=== PATIENT | female | born 1990 | race Two or more races ===

== ENCOUNTER 2020-10-09 10:48 | Inpatient (IN) | payer OTHER ==
[~2020-10-09] VITALS: Ht 160 cm; Wt 81.8 kg
[2020-10-09] MEDS ORDERED: OXYTOCIN 30U/ 0.9% NaCL 500ML 500 ML IV ONE (12:30)
[2020-10-09] MEDS ORDERED: TERBUTALINE 1 MG/ML, 1ML SQ PRN (12:30)
[2020-10-09] MEDS ORDERED: OXYTOCIN 30U/ 0.9% NaCL 500ML 500 ML IV PRN (12:30)
[2020-10-09] MEDS ORDERED: FENTANYL PF 100 MCG/2ML IV PRN (12:30)
[2020-10-09] MEDS ORDERED: TERBUTALINE 1 MG/ML, 1ML IVPush PRN (12:30)
[2020-10-09] MEDS ORDERED: FENTANYL PF 100 MCG/2ML IVPush PRN (12:30)
[2020-10-09] MEDS ORDERED: ONDANSETRON 2MG/ML, 2ML IVPush PRN (12:30)
[2020-10-09] MEDS ORDERED: CALCIUM CARBONATE 500 MG TAB.CHEW PO PRN (12:30)
[2020-10-09] MEDS ORDERED: D5%-LACTATED RINGERS 1,000 ML IV SCH (12:30)
[2020-10-09] MEDS ORDERED: NEWBORN KIT ONE (12:53)
[2020-10-09] MEDS: LACTATED RINGERS 1,000 ML IV SCH ×2 (12:57→19:00)
[2020-10-09 13:05] LABS: BASOPHILS % (AUTO) 0 % (0-1); EOSINOPHILS % (AUTO) 0 % (1-7); LYMPHOCYTES % (AUTO) 12 % (22-44); MEAN CORPUSCULAR HEMOGLOBIN 28.4 pg (27.0-34.8); MEAN CORPUSCULAR HGB CONC 33.5 g/dL (32.4-35.8); MEAN PLATELET VOLUME 9.6 fL (7.4-10.4); MONOCYTES % (AUTO) 6 % (2-9); NEUTROPHILS % (AUTO) 81 % (42-75); PLATELET COUNT 154 x10^3/uL (130-400); RED BLOOD COUNT 4.71 x10^6/uL (3.82-5.3); RED CELL DISTRIBUTION WIDTH 17.2 % (9.6-15.2)
[2020-10-09 13:07] LABS: MD NO
[2020-10-09] MEDS ORDERED: ACETAMINOPHEN 500 MG TABLET ONE (19:12)
[2020-10-09] MEDS ORDERED: LIDOCAINE 1%, 20ML ONE (19:12)
[2020-10-09] MEDS: AMPICILLIN 2 GM in SODIUM CHLORIDE 0.9% 100 ML IV SCH (19:17)
[2020-10-09] MEDS ORDERED: ACETAMINOPHEN 500 MG TABLET PO ONE (19:30)
[2020-10-10] MEDS: AMPICILLIN 2 GM in SODIUM CHLORIDE 0.9% 100 ML IV SCH ×2 (01:16→07:30)
[2020-10-10] MEDS: LACTATED RINGERS 1,000 ML IV SCH ×2 (01:33→09:32)
[2020-10-10] MEDS ORDERED: CARBOPROST TROMETHAMINE 250 MCG/ML, 1ML IM PRN (12:30)
[2020-10-10] MEDS ORDERED: BISACODYL 10 MG SUPP PR PRN (12:30)
[2020-10-10] MEDS ORDERED: METHYLERGONOVINE 0.2 MG/ML IM PRN (12:30)
[2020-10-10] MEDS ORDERED: IBUPROFEN 600 MG TABLET PO PRN (12:30)
[2020-10-10] MEDS ORDERED: ONDANSETRON 2MG/ML, 2ML IV PRN (12:30)
[2020-10-10] MEDS ORDERED: OXYTOCIN 30U/ 0.9% NaCL 500ML 500 ML IV SCH (12:30)
[2020-10-10] MEDS ORDERED: DOCUSATE 100 MG CAPSULE PO PRN (12:30)
[2020-10-10] MEDS ORDERED: METOCLOPRAMIDE 5 MG/ML, 2ML IV PRN (12:30)
[2020-10-10] MEDS ORDERED: GLYCERIN ADULT SUPP PR PRN (12:30)
[2020-10-10] MEDS ORDERED: ACETAMINOPHEN 325 MG TABLET PO PRN ×2 (12:30)
[2020-10-10] MEDS ORDERED: MISOPROSTOL 200 MCG TABLET PR PRN (12:30)
[2020-10-10] MEDS ORDERED: OXYcodone/APAP 5/325MG TABLET PO PRN ×2 (12:30)
[2020-10-10] MEDS ORDERED: SIMETHICONE 80 MG CHEW TAB PO PRN (12:30)
[2020-10-10 14:25] VITALS: BP 114/76
[2020-10-10 20:00] VITALS: BP 115/84
[2020-10-11 01:00] VITALS: BP 114/76
[2020-10-11 01:21] LABS: MEAN CORPUSCULAR HEMOGLOBIN 28.2 pg (27.0-34.8); MEAN CORPUSCULAR HGB CONC 33.2 g/dL (32.4-35.8); MEAN PLATELET VOLUME 9.5 fL (7.4-10.4); PLATELET COUNT 164 x10^3/uL (130-400); RED BLOOD COUNT 4.33 x10^6/uL (3.82-5.3); RED CELL DISTRIBUTION WIDTH 17.9 % (9.6-15.2)
[2020-10-11 01:44] LABS: BAND#(MANUAL) 3.46 x10^3/uL; BANDS%(MANUAL) 16 % (0-7); LYMPH#(MANUAL) 2.16 x10^3/uL (1-3.4); LYMPHS% (MANUAL) 10 % (22-44); MD YES; METAMYELOCYTES# (MANUAL) 0.43 x10^3/uL (0-0); METAMYELOCYTES% (MANUAL) 2 % (0-1); MONOS#(MANUAL) 0.22 x10^3/uL (0.3-2.7); MONOS% (MANUAL) 1 % (2-9); SEG#(MANUAL) 15.34 x10^3/uL (1.8-6.8); SEGS% (MANUAL) 71 % (42-75)
[2020-10-11 01:45] LABS: POLYCHROMASIA 1+
[2020-10-11 01:46] LABS: ANISOCYTOSIS 1+
[2020-10-11 01:47] LABS: <PLATELET ESTIMATE> ADEQUATE; HYPOCHROMIA 1+; LARGE PLATELETS 1+; PMNS WITH VACUOLES 1+; TOXIC GRAN 1+
[2020-10-11 04:00] VITALS: BP 110/76
[2020-10-11 07:45] VITALS: BP 108/70
[2020-10-11] MEDS: PRENATAL VIT/IRON/FA 1 EACH TABLET PO SCH (09:00)
[2020-10-11 19:44] VITALS: BP 104/71
[2020-10-12 07:20] VITALS: BP 108/71
[2020-10-12] MEDS: PRENATAL VIT/IRON/FA 1 EACH TABLET PO SCH (08:56)
== END 2020-10-12 11:45 | disposition home or self-care (01) | DRG 806 ==
LOC: LDOP 10:48 → LDIP 12:25 → 2NW 10-10 14:36
PROVIDERS: ADMIT Obstetrics & Gynecology; ATTEND Obstetrics & Gynecology
PROC: 10E0XZZ Delivery of Products of Conception, External Approach (ICD-10-PCS; principal; 2020-10-10)
PROC: 10D17Z9 Manual Extraction of Products of Conception, Retained, Via Natural or Artificial Opening (ICD-10-PCS; 2020-10-10)
PROC: 0KQM0ZZ Repair Perineum Muscle, Open Approach (ICD-10-PCS; 2020-10-10)
DX: O70.1 Second degree perineal laceration during delivery (principal); O72.0 Third-stage hemorrhage; Z37.0 Single live birth; Z20.822 Contact with and (suspected) exposure to COVID-19; Z3A.39 39 weeks gestation of pregnancy
CPT/HCPCS: 36415; J7121; 84112; 85025; 86592; 86850; 86900; 87635; 89060; G0378; J0290; J3010; J2590; J7120; Q0114